=== PATIENT | female | born 1945 | race Caucasian/White ===

== ENCOUNTER → 2016-12-26 | Outpatient (CLI) | payer MEDICARE, BC ==
[~2016-12-26] MED LIST: CALCIUM600 MG PO; DAILY MULTIPLE1 EAC1 PO; FML 0.1% OU; LIPITOR DPS20 MG PO; OMEGA-3 DPS1000 MG PO; PLAVIX75 MG PO; PRILOSEC DPS20 MG PO; THERA1 EACH PO; VITAMIN D2000 UNI1 PO; ZOLOFT25 MG PO
== END | disposition home or self-care (01) ==
LOC: RAD.S 11:08
DX: Z12.31 Encounter for screening mammogram for malignant neoplasm of breast (principal); Z13.820 Encounter for screening for osteoporosis; M85.89 Other specified disorders of bone density and structure, multiple sites; Z78.0 Asymptomatic menopausal state

== ENCOUNTER → 2017-01-05 | Outpatient (CLI) | payer MEDICARE, BC | END | disposition home or self-care (01) | LOC: RAD.S 10:47 | DX: R04.2 Hemoptysis (principal); I25.10 Atherosclerotic heart disease of native coronary artery without angina pectoris; I77.819 Aortic ectasia, unspecified site ==